=== PATIENT | female | born 1955 | race Caucasian/White ===

== ENCOUNTER → 2022-08-27 10:28 | Outpatient (CLI) | payer MEDICARE, OTHER, SELFPAY ==
--- NOTE | 2022-08-27 10:36 | DI.MRI.S_ITS ---
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 Precontrast axial STIR and 3D FLASH without fat saturation sequences were obtained. Both before and after bolus injection of contrast, sequential 1-minute axial 3D FLASH with fat saturation sequences for 3 time points, with subtraction images and maximum intensity projections (MIP's) generated. Delayed sagittal FLASH images with fat saturation were also obtained. Computer-aided detection, including computer algorithm analysis of MRI image data for lesion detection and characterization, pharmacokinetic analysis, with further physician review for interpretation, was performed. COMPARISON: None. FINDINGS: Image quality: Good There is mild background parenchymal enhancement. Right breast: There is a 5 x 5 mm focus at the 6 o'clock position in the right breast middle depth 1 cm from the nipple (/, ). No other suspicious masses or non mass enhancement. No axillary adenopathy is identified. Left breast: There is segmental non-mass enhancement measuring a span of 40 x 28 x 37 mm in the left breast upper outer quadrant (, ). A small portion of this enhancement involves also the upper inner quadrant. This corresponds to biopsy-proven malignancy, with more extensive disease than suggested on ultrasound.: No pathologic lymph nodes seen in the axilla or internal mammary chain. Miscellaneous: No applicable findings in the partially visualized chest or upper abdomen. IMPRESSION: Right breast: 5 x 5 mm focus at the 6 o'clock position 1 cm from the nipple middle depth. Reference image numbers , . This is indeterminate. Contralateral synchronous primary is within the differential considerations, especially given lobular pathology. A second-look ultrasound could be obtained to identify a target for potential biopsy if clinically desired, versus 6 month follow-up. BIRADS 0 Left breast: Segmental non-mass enhancement measuring a span of 40 x 28 x 37 mm in the upper outer quadrant, also involving a small portion of the upper inner quadrant, greater in extent than suggested with ultrasound. Reference image numbers , . This corresponds to biopsy-proven malignancy. BI-RADS 6: Biopsy-proven malignancy. Dictated by: Rayshawn Grajeda M.D. on 08/27/2022 at 14:22 Approved by: aRyshawn Grajeda M.D. on 08/27/2022 at 14:36
== END ==
PROVIDERS: PCP Internal Medicine; Referring Provider Surgery; Visit Provider Surgery
DX: D05.02 Lobular carcinoma in situ of left breast (principal); N63.15 Unspecified lump in the right breast, overlapping quadrants
CPT/HCPCS: 77049; A9579